=== PATIENT | male | born 1980 | race Caucasian/White ===

== ENCOUNTER 2024-10-17 09:10 | Emergency (ER) | payer OTHER, SELFPAY ==
--- NOTE | 2024-10-17 09:12 | ED_ITS ---
HPI - Nausea/Vomiting/Diarrhea General Chief complaint: Nausea/Vomiting/Diarrhea Stated complaint: n/v/back pain Time Seen by Provider: 10/17/24 09:12 Source: patient Mode of arrival: ambulatory Limitations: no limitations History of Present Illness HPI Narrative: Elías is a 44-year-old male patient presenting to the clinic today with complaints of nausea, vomiting, and low back pain. Symptoms started around 7:00 a.m. last night. Thinks he ate something bad at work. States he started feeling bloated and became nausea. Has vomited twice and had 2 diarrhea stools since 7:00 a.m. yesterday. Feels nauseated off and on. Denies any abdominal pain. No blood in his stool. Denies any urinary symptoms. Pain is to the mid low back without injury. No history of Crohn's, IBS, ulcerative colitis, divert iculitis, or diverticulosis. Is having flatulence and belching. Related Data Allergies Allergy/AdvReac Type Severity Reaction Status Date / Time No Known Allergies Allergy Mild Verified 10/17/24 09:32 Review of Systems Review of Systems: Pertinent positives per HPI. Patient denies any fever, chills, rash, headache, visual changes, dizziness, cough, runny nose, sore throat, shortness of breath, chest pain, palpitations, diarrhea, constipation, abdominal pain, or any urinary issues. PMFSH Family History Family History Other Diabetes mellitus Family history of arthritis Family history of kidney disease Hypertension Social History Social History Alcohol intake: current Comments At the time of my signature, I reviewed and agree with the nursing past medical, surgical, social, and family history. There is no relevant family history pertinent to the patient complaint. Exam Narrative: General: Well-developed, well nourished, in no apparent distress Head: Normocephalic, atraumatic Eyes: Pupils equally round and reactive to light bilaterally, EOM intact, sclera and conjunctive clear, no discharge, lids normal Ears: TMs intact and clear, ear canals clear, no drainage, grossly hearing normal. Nose: Nares patent, no discharge, no inflammation, no sinus tenderness. Mouth: Oropharynx without lesions or masses, good dentition, MMM. Neck: Supple, trachea midline, no enlargement of anterior or posterior cervical nodes, no thyroid masses or goiter palpable. Cardio: Regular rate and rhythm, s1 and s2 normal, no murmur appreciated. Resp: Clear to auscultation bilaterally anteriorly and posteriorly, no rhonchi, rales, wheezing or rubs Abdomen: Soft, pliable, bowel sounds present in all quadrants, non-tender to palpation, no organomegly, no CVAT tenderness. Musculoskeletal: No deformity, non-tender to palpation, grossly normal range of motion, muscle strength strong and equal in BLE. SLT negative, patellar reflexes 2/4 bilaterally, negative foot drop, normal gait and station Course Course Emergency Course: Portions of this record may have been created with voice recognition software. Level of Care: Express Care Visit Vital Signs Vital signs: Vital Signs Temperature 36.7 C 10/17/24 09:24 Pulse Rate 80 10/17/24 09:24 Respiratory Rate 16 10/17/24 09:24 Blood Pressure 110/69 10/17/24 09:24 Pulse Oximetry 97 10/17/24 09:24 Oxygen Delivery Room Air 10/17/24 09:24 Temperature 36.7 C 10/17/24 09:24 Pulse Rate 80 10/17/24 09:24 Respiratory Rate 16 10/17/24 09:24 Blood Pressure 110/69 10/17/24 09:24 Pulse Oximetry 97 10/17/24 09:24 Oxygen Delivery Room Air 10/17/24 09:24 Vital signs reviewed MDM - Nausea/Vomiting/Diarrhea MDM Narrative Medical decision making narrative: At the time of visit patient is resting comfortably on the exam table. Patient appears to be nontoxic. Labs: Influenza and COVID testing was performed and negative in the clinic today. Plan: I suspect patient has acute gastroenteritis. Prescription for Zofran was sent to the pharmacy. Patient is denying any abdominal cramping or pain at this time. Supportive measures were discussed with the patient and they voiced understanding discharge instructions and agrees to treatment plan. Return precautions reviewed Differential Diagnosis Differential diagnosis: Likely traveler's diarrhea, food poisoning, gastroenteritis, clostridium difficile infection, drug-induced nausea and vomiting, dehydration and other (COVID, influenza) Lab Data Labs: Lab Results 10/17/24 Range/Units 09:30 POC Influenza A Ag Negative (Negative) POC Influenza B Ag Negative (Negative) POC SARS CoV-2 Ag Negative (Negative) Discharge Plan Discharge Clinical Impression: Gastroenteritis Patient Disposition: Home, Self-Care Condition: Stable Instructions: Antibiotic Form, Gastroenteritis (ED) Additional Instructions: COVID and influenza testing was negative. Take prescription medications only as prescribed-ondansetron for nausea Increase fluids and stay well hydrated Tylenol/motrin for pain/fever BRAT diet for diarrhea Clear liquids x 24 hours then advance as tolerated for nausea/vomiting Go to the ED if you develop a worsening in your condition- high fever not controlled by Tylenol or Motrin, dehydration, weakness, lethargy, shortness of breath, or chest pain. Follow up with your PCP in 3-5 days if symptoms persist. Patient Language: Upper Sorbian Prescriptions: New ondansetron 4 mg tablet,disintegrating 4 mg PO Q6H PRN (Reason: nausea and vomiting) 3 Days Qty: 12 0RF Follow-up/Referrals: UNKNOWN,DOCTOR [Primary Care Provider] - Stand Alone Forms: Work/School Release IP Time of Disposition: 09:39 Quality NIHSS Nursing Documentation ED NIHSS nursing documentation: reviewed/agree
[2024-10-17 09:24] VITALS: BP 110/69; PULSE 80; RESP 16; TEMP 36.7; O2SAT 97
--- OUTSIDE RECORDS SUMMARY | 2024-10-17 09:39 | XMS_ITS | Referral Summary ---
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 Gender Identity Not on file Sexual Orientation Not on file Last Filed Vital Signs Vital Sign Reading Time Taken Comments Blood Pressure 133/81 02/04/2023 12:10 PM CDT Pulse 63 02/04/2023 12:10 PM CDT Temperature 36.8 C (98.2 F) 02/04/2023 10:01 AM CDT Respiratory Rate 16 02/04/2023 10:0 1 AM CDT Oxygen Saturation 99% 02/04/2023 12: 10 PM CDT Inhaled Oxygen Concentration - - Weight 71.6 kg (157 lb 13.6 oz) 023 10:01 AM CDT Height 180.3 cm (5' 11 ) 02/04/2023 10: 01 AM CDT Body Mass Index 22.02 02/04/2023 10:01 AM CDT Plan of Treatment Not on file Insurance [facility] [employer] [facility] HMO/PPO Address: [place] [address] [facility] [employer] [facility] H[facility]/PPO Address: [place] [address] Care Teams Primer Charging Tool Setter Relationship Specialty Start Date End Date No, Physician PCP - General 02/04/23
--- OUTSIDE RECORDS SUMMARY | 2024-10-17 09:39 | XMS_ITS | Clinical Summary ---
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 Gender Identity Not on file Sexual Orientation [...] 02/04/2023 10:01 AM CDT Plan of Treatment Health Maintenance Due Date Last Done Comments Depression Screening 1981 Hepatitis C Screening 1981 DTaP/Tdap/Td Vaccine (1 - Tdap) 1992 Varicella Vaccines (1 of 2 - 13+ 2-dose series) 1994 Hepatitis B Screening 1999 Regular Well Visit/Exam 18-64 1999 Influenza Vaccine (#1) 2024 HPV Vaccines Aged Out No longer eligi ble based on patient's age to complete this topic Pneumococcal vaccine <65 Aged Out No longer eligible based on patient's age to complete this topic Insurance Care Teams Slitting Machine Operator Relationship Specialty Start Date End Date No, Physician PCP - General 02/04/23
--- OUTSIDE RECORDS SUMMARY | 2024-10-17 09:39 | XMS_ITS | Clinical Summary ---
Author Organization [facility] [employer] Address [address] [place] [address] Care Team Providers Care Profiling Machine Setup Operator Name Role Phone Unavailable Primary Care Provider Unavailabl e Source Comments [facility],non-owned Affiliates and Associated Physician Practices is amultiple site organization consisting of ambulatory clinics and hospital sitesin [place], [place], [place] and [place]. This disclosure is being madepursuant to the Care Everywhere program and may not contain all information available regarding this patient. Last updated 18.[facility] [employer] Allergies No known active allergies Medications Be aware that medications may not be up to date on this document. Always verify current medications with the patient. No known medications Family History Medical History Relation Name Comments Renal Disease Mother Asthma Neg Hx Autoimmune Disease Neg Hx Bipolar Disorder Neg Hx Cancer - Breast Neg Hx Cancer - Colon Neg Hx Cancer - Other Neg Hx Cancer - Ovarian Neg Hx Cancer - Pancreatic Neg Hx Cancer - Prostate Neg Hx Depression Neg Hx Eczema Neg Hx Hypertension Neg Hx Migraine Neg Hx Osteoporosis Neg Hx Seizures Neg Hx Sudd. <30 Neg Hx Thyroid Disease Neg Hx Ulcerative Colitis Neg Hx Relation Name Status Comments Mother Alive Social History Tobacco Use Types Packs/Day Years Used Date Smoking Tobacco: Former Cigarettes 1 15 0 09/03/2003 - 09/03/2018 Smokeless Tobacco: Never Tobacco Cessation:Ready to Q uit: No; Counseling Given: No Alcohol Use Standard Drinks/Week Comments No 0 (1 standard drink = 0.6 oz pur e alcohol) Sex and Gender Information Value Date Recorded Sex Assigned at Not on file Gender Identity Not on file Sexual Orientation Not on file Last Filed Vital Signs Vital Sign Reading Time Taken Comments Blood Pressure 118/70 01/10/2019 10:21 AM CDT Pulse 64 01/10/2019 10:21 AM CDT Temperature 36.7 C (98.1 F) 01/10/2019 10:21 AM CDT Respiratory Rate 16 01/10/2019 10:21 AM CDT Oxygen Saturation 98% 01/10/2019 10:21 AM CDT Inhaled Oxygen Concentration - - Weight 77.1 kg (170 lb) 01/10/2019 10:21 AM CDT Height 180.3 cm (5' 11 ) 01/10/2019 10:21 AM CDT Body Mass Index 23.71 01/10/2019 10:21 AM CDT Plan of Treatment Health Maintenance Due Date Last Done Comments LIPID TESTING 1981 HIV SCREENING 1996 HEPATITIS C SCREENING 08/04/1999 DTAP/TDAP/TD VACCINES (1 - Tdap) 2000 HEPATITIS B VACCINE (1 of 3 - 19+ 3-dose series) 2000 COVID-19 VACCINE ( - 2023-2 5 season) 2024 INFLUENZA VACCINE (#1) 2024 DEPRESSION SCREENING 07/23/2024 ZOSTER VACCINE (1 of 2) 2031 HIB VACCINE Aged Out No longer eligi ble based on patient's age to complete this topic HPV VACCINE Aged Out No longer eligi ble based on patient's age to complete this topic MENINGOCOCCAL (Group B) VACC INE SHARED DECISION-MAKING Aged Out No longer eligibl e based on patient's age to complete this topic MENINGOCOCCAL GROUPS A/C/Y/W VACCINE Aged Out No longer eligible b ased on patient's age to complete this topic PNEUMOCOCCAL VACCINE Aged Out No long er eligible based on patient's age to complete this topic
--- OUTSIDE RECORDS SUMMARY | 2024-10-17 09:40 | XMS_ITS | Encounter Summary ---
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 Historical Provider [facility] PROCE DURES Final Result * CARDIOLOGY REPORT (03/07/2017 12:00 AM CDT) Anatomical Region Laterality Modality Other Narrative 03/07/2017 12:00 AM CDT Ordered by an unspecified provider. Historical Provider [facility] PROCE DURES Final Result documented in this encounter Visit Diagnoses Not on filedocumented in this encounter Care Teams Supervisor Buffing And Pasting Relationship Specialty Start Date End Date No, Physician PCP - General 02/04/23 documented as of this encounter
--- OUTSIDE RECORDS SUMMARY | 2024-10-17 09:40 | XMS_ITS | Encounter Summary ---
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 us Historical Provider [facility] JAXSON CAREY Final Result documented in this encounter Visit Diagnoses Not on filedocumented in this encounter Care Teams White Lead Filterer Relationship Specialty Start Date End Date Pastora Physician PCP - General 02/04/23 documented as of this encounter
[2024-10-17 09:48] LABS: EDCOVIDSCREEN Negative (Negative); EDINFLUASCREEN Negative (Negative); EDINFLUBSCREEN Negative (Negative)
== END 2024-10-17 09:52 | disposition home or self-care (01) ==
PROVIDERS: Emergency Provider Nurse Practitioner Family
DX: K52.9 Noninfective gastroenteritis and colitis, unspecified (principal); Z20.822 Contact with and (suspected) exposure to COVID-19
CPT/HCPCS: 87426; 87804; 99213; G0463